=== PATIENT | female | born 1940 | race Caucasian/White ===

== ENCOUNTER 2021-10-18 10:40 | Outpatient (RCR) | payer MEDICARE | END 2021-10-23 | LOC: PT 10:40 | PROVIDERS: ATTEND Family Medicine | DX: M51.36 Other intervertebral disc degeneration, lumbar region (principal); G62.9 Polyneuropathy, unspecified ==

== ENCOUNTER 2021-11-18 13:56 | Outpatient (RCR) | payer MEDICARE | END 2021-11-22 | LOC: PT 13:56 | PROVIDERS: ATTEND Family Medicine | DX: M51.36 Other intervertebral disc degeneration, lumbar region (principal) ==